=== PATIENT | male | born 1985 | race Caucasian/White ===

== ENCOUNTER 2020-12-24 22:31 | Emergency (ER) | payer OTHER ==
[~2020-12-24] VITALS: Ht 167.7 cm; Wt 74.8 kg
[~2020-12-24 22:31] MED LIST: ACHD5005 PO; CYCL10TA9 PO
[2020-12-24 23:32] LABS: BASOPHILS % (AUTO) 0 % (0-10); EOSINOPHILS % (AUTO) 0 % (0-10); HEMATOCRIT 43 % (40-54); HEMOGLOBIN 14.9 g/dL (13.3-17.7); LYMPHOCYTES # (AUTO) 1.1 10^3/uL (1.0-4.0); LYMPHOCYTES % (AUTO) 14 % (12-44); MEAN CORPUSCULAR HEMOGLOBIN 31 pg (25-34); MEAN CORPUSCULAR HGB CONC 35 g/dL (32-36); MEAN CORPUSCULAR VOLUME 89 fL (80-99); MEAN PLATELET VOLUME 10.4 fL (9.0-12.2); MONOCYTES # (AUTO) 0.5 10^3/uL (0.0-1.0); MONOCYTES % (AUTO) 7 % (0-12); NEUTROPHILS # (AUTO) 6.1 10^3/uL (1.8-7.8); NEUTROPHILS % (AUTO) 78 % (42-75); PLATELET COUNT 238 10^3/uL (130-400); WHITE BLOOD COUNT 7.9 10^3/uL (4.3-11.0)
[2020-12-24 23:43] LABS: INR 1.2 (0.8-1.4); PROTHROMBIN TIME PATIENT 15.5 SEC (12.2-14.7)
[2020-12-24 23:52] LABS: ALANINE AMINOTRANSFERASE 24 U/L (0-55); ALBUMIN 4.5 GM/DL (3.2-4.5); ALKALINE PHOSPHATASE 72 U/L (40-136); BILIRUBIN,TOTAL 0.7 MG/DL (0.1-1.0); BUN/CREATININE RATIO 14; CALCIUM 9.7 MG/DL (8.5-10.1); CARBON DIOXIDE 26 MMOL/L (21-32); CHLORIDE 100 MMOL/L (98-107); CREATINE KINASE 150 U/L (30-200); CREATININE SERUM 1.07 MG/DL (0.60-1.30); GFR ESTIMATED > 60; GLUCOSE 111 MG/DL (70-105); MAGNESIUM 1.9 MG/DL (1.6-2.4); POTASSIUM 3.8 MMOL/L (3.6-5.0); SODIUM 137 MMOL/L (135-145); TOTAL PROTEIN 7.3 GM/DL (6.4-8.2)
[2020-12-25] LABS: CREATINE KINASE MB 1.3 NG/ML (<6.6)
[2020-12-25 00:12] LABS: ACETAMINOPHEN < 10 UG/ML (10-30)
[2020-12-25] MEDS ORDERED: TETANUS,DIPTH,PERTUSS P/F (BOOSTRIX) 0.5 ML VIAL IM ONE (00:15)
[2020-12-25] MEDS ORDERED: LIDOCAINE/EPI 2% 1:100,00 (XYLOCAINE) 20 ML VIAL ONE (00:41)
[2020-12-25] MEDS ORDERED: LIDOCAINE/EPI 2% 1:100,00 (XYLOCAINE) 20 ML VIAL INJ ONE (01:00)
[2020-12-25 01:11] VITALS: BP_SYST 113; BP_SYST 117; BP_DIAS 64; BP_DIAS 70
[2020-12-25 01:16] LABS: BILIRUBIN,URINE NEGATIVE (NEGATIVE); CLARITY,URINE CLEAR; COLOR,URINE YELLOW; GLUCOSE, URINE (UA) NEGATIVE (NEGATIVE); KETONES,URINE NEGATIVE (NEGATIVE); LEUKOCYTE ESTERASE ,URINE NEGATIVE (NEGATIVE); NITRITE,URINE NEGATIVE (NEGATIVE); PROTEIN,URINE NEGATIVE (NEGATIVE)
[2020-12-25 01:26] LABS: BACTERIA,URINE NEGATIVE /HPF; RBC,URINE 25-50 /HPF; SQUAMOUS EPITHELIAL CELL,UR RARE /HPF
[2020-12-25 01:29] LABS: AMPHETAMINE SCREEN, URINE NEGATIVE (NEGATIVE); BARBITURATE SCREEN URINE NEGATIVE (NEGATIVE); BENZODIAZEPINES SCREEN URINE NEGATIVE (NEGATIVE); CANNABINOID SCREEN, URINE NEGATIVE (NEGATIVE); COCAINE SCREEN URINE NEGATIVE (NEGATIVE); METHADONE STAT NEGATIVE (NEGATIVE); METHAMPHETAMINE SCREEN URINE S NEGATIVE (NEGATIVE); OPIATE SCREEN URINE NEGATIVE (NEGATIVE); OXYCODONE STAT NEGATIVE (NEGATIVE); PROPOXYPHENE STAT NEGATIVE (NEGATIVE); TRICYCLIC ANTIDEPRESSANTS SCRE NEGATIVE (NEGATIVE)
[2020-12-25] MEDS ORDERED: RX-CEPHALEXIN (KEFLEX) 250 MG CAP PPK#4 PO STA (01:35)
[2020-12-25] MEDS ORDERED: RX-NAPROXEN (NAPROSYN) 250 MG TAB PPK#4 PO STA (01:35)
[2020-12-25] MEDS ORDERED: CEPH500T PO (01:41)
[2020-12-25] MEDS ORDERED: NAPR500T8 PO (01:41)
--- NOTE | 2020-12-25 01:41 | ED Syncope ---
General Chief Complaint: General Problems/Pain Stated Complaint: CHIN LACERATION/INJURY Nursing Triage Note: ARRIVES TO ROOM 7 C/O PASSING OUT AND HITTING HIS CHIN. THERE IS A 2.5 CM LAC NOTED TO HIS DISTAL CHIN AREA WHICH APPEARS TO BE THROUGH THE SKIN TISSUE. NO BLEEDING NOTED AT THIS TIME. ALERT AND ORIENTED X4 SO AT BEDSIDE. CALL LIGHT IN REACH History of Present Illness Location Injury Occurred: HOME Allergies and Home Medications Allergies Coded Allergies: No Known Drug Allergies (Unverified , 12/26/15) Home Medications Cyclobenzaprine HCl 10 Mg Tablet, 10 MG PO Q8H PRN for PAIN Prescribed by: VI SANDOVAL on 12/26/15 1524 Hydrocodone Bit/Acetaminophen 1 Each Tablet, 1 EACH PO Q4H PRN for PAIN Prescribed by: VI SANDOVAL on 12/26/15 1524 Past Behlrsw-Tbjxnx-Popzdl Hx Patient Social History Alcohol Use: Denies Use Drug of Choice: MUSHROOMS Recent Infectious Disease Expo: No Recent Hopitalizations: No Immunizations Up To Date Tetanus Booster (TDap): Less than 5yrs Past Medical History Surgeries: Yes (PRK EYE SURGERY) Respiratory: No Cardiac: No Neurological: No Genitourinary: No Gastrointestinal: No Musculoskeletal: Yes Chronic Back Pain Endocrine: No HEENT: No Cancer: No Psychosocial: No Integumentary: No Blood Disorders: No Family Medical History No Pertinent Family Hx Physical Exam Vital Signs Vital Signs - First Documented 12/24/20 23:25 Temp 35.9 Pulse 65 Resp 18 B/P (MAP) 129/75 (93) Pulse Ox 98 Capillary Refill : Less Than 3 Seconds Height, Weight, BMI Height: 5'6" Weight: 158lbs. oz. [id number]; 26.00 BMI Method:Stated Progress/Results/Core Measures Results/Orders Lab Results Laboratory Tests Test 12/24/20 23:25 12/24/20 23:51 12/25/20 01:10 Range/Units White Blood Count 7.9 4.3-11.0 10^3/uL Red Blood Count 4.79 4.30-5.52 10^6/uL Hemoglobin 14.9 13.3-17.7 g/dL Hematocrit 43 40-54 % Mean Corpuscular Volume 89 80-99 fL Mean Corpuscular Hemoglobin 31 25-34 pg Mean Corpuscular Hemoglobin Concent 35 32-36 g/dL Red Cell Distribution Width 11.9 10.0-14.5 % Platelet Count 238 130-400 10^3/uL Mean Platelet Volume 10.4 9.0-12.2 fL Immature Granulocyte % (Auto) 0 % Neutrophils (%) (Auto) 78 H 42-75 % Lymphocytes (%) (Auto) 14 12-44 % Monocytes (%) (Auto) 7 0-12 % Eosinophils (%) (Auto) 0 0-10 % Basophils (%) (Auto) 0 0-10 % Neutrophils # (Auto) 6.1 1.8-7.8 10^3/uL Lymphocytes # (Auto) 1.1 1.0-4.0 10^3/uL Monocytes # (Auto) 0.5 0.0-1.0 10^3/uL Eosinophils # (Auto) 0.0 0.0-0.3 10^3/uL Basophils # (Auto) 0.0 0.0-0.1 10^3/uL Immature Granulocyte # (Auto) 0.0 0.0-0.1 10^3/uL Prothrombin Time 15.5 H 12.2-14.7 SEC INR Comment 1.2 0.8-1.4 Activated Partial Thromboplast Time 24 24-35 SEC Sodium Level 137 135-145 MMOL/L Potassium Level 3.8 3.6-5.0 MMOL/L Chloride Level 100 98-107 MMOL/L Carbon Dioxide Level 26 21-32 MMOL/L Anion Gap 11 5-14 MMOL/L Blood Urea Nitrogen 15 7-18 MG/DL Creatinine 1.07 0.60-1.30 MG/DL Estimat Glomerular Filtration Rate > 60 BUN/Creatinine Ratio 14 Glucose Level 111 H 70-105 MG/DL Calcium Level 9.7 8.5-10.1 MG/DL Corrected Calcium 9.3 8.5-10.1 MG/DL Magnesium Level 1.9 1.6-2.4 MG/DL Total Bilirubin 0.7 0.1-1.0 MG/DL Aspartate Amino Transf (AST/SGOT) 28 5-34 U/L Alanine Aminotransferase (ALT/SGPT) 24 0-55 U/L Alkaline Phosphatase 72 40-136 U/L Total Creatine Kinase 150 30-200 U/L Creatine Kinase MB 1.3 <6.6 NG/ML Myoglobin 49.2 10.0-92.0 NG/ML Troponin I < 0.028 <0.028 NG/ML Total Protein 7.3 6.4-8.2 GM/DL Albumin 4.5 3.2-4.5 GM/DL Acetaminophen Level < 10 L 10-30 UG/ML Serum Alcohol < 10 <10 MG/DL Coronavirus 2019 (PORTER) Not Detected Not Detecte Urine Color YELLOW Urine Clarity CLEAR Urine pH 7.0 5-9 Urine Specific [place] 1.010 L 1.016-1.022 Urine Protein NEGATIVE NEGATIVE Urine Glucose (UA) NEGATIVE NEGATIVE Urine Ketones NEGATIVE NEGATIVE Urine Nitrite NEGATIVE NEGATIVE Urine Bilirubin NEGATIVE NEGATIVE Urine Urobilinogen 1.0 < = 1.0 MG/DL Urine Leukocyte Esterase NEGATIVE NEGATIVE Urine RBC (Auto) 3+ H NEGATIVE Urine RBC 25-50 H /HPF Urine WBC NONE /HPF Urine Squamous Epithelial Cells RARE /HPF Urine Crystals NONE /LPF Urine Bacteria NEGATIVE /HPF Urine Casts NONE /LPF Urine Mucus NEGATIVE /LPF Urine Culture Indicated NO Urine Opiates Screen NEGATIVE NEGATIVE Urine Oxycodone Screen NEGATIVE NEGATIVE Urine Methadone Screen NEGATIVE NEGATIVE Urine Propoxyphene Screen NEGATIVE NEGATIVE Urine Barbiturates Screen NEGATIVE NEGATIVE Ur Tricyclic Antidepressants Screen NEGATIVE NEGATIVE Urine Phencyclidine Screen NEGATIVE NEGATIVE Urine Amphetamines Screen NEGATIVE NEGATIVE Urine Methamphetamines Screen NEGATIVE NEGATIVE Urine Benzodiazepines Screen NEGATIVE NEGATIVE Urine Cocaine Screen NEGATIVE NEGATIVE Urine Cannabinoids Screen NEGATIVE NEGATIVE My Orders Orders - SAMPSON RODRIGUEZ DO Ed Iv/Invasive Line Start (12/24/20 23:22) Ekg Tracing (12/24/20 23:22) Monitor-Rhythm Ecg Trace Only (12/24/20 23:22) Orthostatic Vital Signs (Adult (12/24/20 23:22) Chest 1 View, Ap/Pa Only (12/24/20 23:22) Acetaminophen (12/24/20 23:22) Alcohol (12/24/20 23:22) Cbc With Automated Diff (12/24/20 23:22) Comprehensive Metabolic Panel (12/24/20 23:22) Creatine Kinase (12/24/20 23:22) Creatine Kinase Mb (12/24/20 23:22) Drug Screen Stat (Urine) (12/24/20 23:22) Magnesium (12/24/20 23:22) Protime With Inr (12/24/20 23:22) Partial Thromboplastin Time (12/24/20 23:22) Ua Culture If Indicated (12/24/20 23:22) Myoglobin Serum (12/24/20 23:22) Troponin I (12/24/20 23:22) Ct Head/Face/Cervical Wo (12/24/20 23:32) Cervical Collar (12/24/20 23:32) Covid 19 Inhouse Test (12/24/20 23:40) Dipht,Pertuss(Acell),Tet Adult (Boostrix (12/25/20 00:15) Lidocaine/Epi 2% 1:100,000 (Xylocaine/Ep (12/25/20 01:00) Lidocaine/Epi 2% 1:100,000 (Xylocaine/Ep (12/25/20 00:41) Rx-Cephalexin Capsule (Rx-Keflex Capsule (12/25/20 01:35) Rx-Naproxen (Rx-Naprosyn) (12/25/20 01:35) Medications Given in ED Current Medications Medications Dose Ordered Sig/Solo Route Start Time Stop Time Status Last Admin Dose Admin Diphtheria/ Tetanus/Acell Pertussis 0.5 ml ONCE ONCE IM 12/25/20 00:15 12/25/20 00:16 DC 12/25/20 01:18 0.5 ML Lidocaine/ Epinephrine 20 ml ONCE ONCE INJ 12/25/20 01:00 12/25/20 01:01 DC 12/25/20 01:16 20 ML Vital Signs/I&O 12/24/20 12/25/20 23:25 01:11 Temp 35.9 Pulse 65 49 44 77 Resp 18 B/P (MAP) 129/75 (93) 113/64 (80) 117/70 (86) 117/70 (86) Pulse Ox 98 Blood Pressure Mean: 86 Departure Impression Primary Impression: Syncope Additional Impressions: Chin laceration MANDIBLE CONTUSION CERVICAL SPINE STRAIN Shlmjkhktc-bcwaqcdlu-fmjvnrh (DPT) vaccination administered at current visit Disposition: HOME, SELF-CARE Condition: Stable Departure-Patient Inst. Referrals: [facility] [place] Patient Instructions: Cervical Muscle Strain (DC), Contusion (DC), Laceration Repair With Stitches (DC), Syncope (Fainting) (DC) Add. Discharge Instructions: ICE TO SORE AREAS AT 20 MINUTE INTERVALS TYLENOL NEEDED FOR PAIN CLEAN WOUND TWICE A DAY WITH ANTIBACTERIAL SOAP AND WATER, OTHERWISE KEEP CLEAN AND DRY SUTURES OUT IN 5-7 DAYS--YOU MAY RETURN HERE FOR SUTURE REMOVAL OR FOLLOW UP WITH [facility] FOR SUTURE REMOVAL FOLLOW UP WITH [facility] IN 2-3 DAYS FOR FURTHER CARE, RETURN TO ER IF SYMPTOMS RETURN All discharge instructions reviewed with patient and/or family. Voiced understanding. Scripts Naproxen (Naproxen) 500 Mg Tablet.dr 500 MG PO BID, #20 TAB Prov: SAMPSON RODRIGUEZ DO 12/25/20 Cephalexin (Cephalexin) 500 Mg Tablet 500 MG PO QID, #40 TAB Prov: SAMPSON RODRIGUEZ DO 12/25/20 SAMPSON RODRIGUEZ DO Dec 25, 2020 01:41
[2020-12-25] MEDS ORDERED: NAPROXEN 250 MG (NAPROSYN) TABLET PO ONE ×2 (01:44→02:00)
[2020-12-25 01:56] VITALS: BP 118/60
--- NOTE | 2020-12-25 07:27 | Diagnostic Imaging Report ---
PATIENT HISTORY: SYNCOPE. TECHNIQUE: Single frontal view of the chest. COMPARISON: None FINDINGS: The lung volumes are normal. No focal consolidation is seen. No large pleural effusion or pneumothorax is seen. The cardiomediastinal silhouette is normal in size and contour. No acute osseous abnormality is seen. IMPRESSION: No acute pulmonary abnormality seen. Dictated by: Dictated on workstation # [id number]
--- NOTE | 2020-12-25 07:37 | Diagnostic Imaging Report ---
PROCEDURE: CT head, face, and cervical spine without contrast. TECHNIQUE: Multiple contiguous axial images were obtained through the head, neck, and facial bones without the use of intravenous contrast. Sagittal and coronal reformations through the cervical spine and facial bones were also performed. Auto Exposure Controls were utilized during the CT exam to meet ALARA standards for radiation dose reduction. INDICATION: Trauma, fall COMPARISON: 12/26/2015 FINDINGS: No intracranial hemorrhage. No intracranial mass, mass effect, midline shift, herniation, hydrocephalus, or extra-axial fluid collection. No definite CT evidence of an acute ischemic infarction. The orbits are unremarkable. The paranasal sinuses are clear. The calvarium is intact. Very minimal mucosal thickening within the inferior aspect of the bilateral maxillary sinuses. Otherwise, the paranasal sinuses are clear. The lamina papyracea are intact. Leftward nasal septal deviation. 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 No temporomandibular joint dislocation. No acute facial fracture. Chronic deformities of the bilateral nasal bones, left greater than right, which are felt to relate to chronic fractures. Parapharyngeal fat is symmetric and well-maintained. Soft tissue wound and defect is noted overlying the anterior aspect of the chin to the left of midline without suspicious radiopaque foreign body. No focal fluid collection. Alignment of the cervical spine is well maintained. Alignment of the atlantooccipital joint is well maintained. Vertebral body heights and disc spaces are well-maintained. No acute fracture or dislocation. No destructive osseous process. No severe osseous central canal stenosis. No apical pneumothorax. IMPRESSION: No acute intracranial abnormality. No acute facial fracture. No acute osseous abnormality within the cervical spine. Soft tissue injury and laceration involving the anterior aspect of the chin to the left of midline. I do not do not totally agree with the preliminary interpretation. In particular, they had questioned the nasal bone fractures were possibly acute, though these appear to be chronic in nature. Report given to the [facility] and faxed at 7:35 AM 12/25/2020/cb Dictated by: Dictated on workstation # [id number]
== END 2020-12-25 01:56 | disposition home or self-care (01) ==
LOC: EDUNIT# 22:31 → ER 22:34
DX: S01.81XA Laceration without foreign body of other part of head, initial encounter (principal); S16.1XXA Strain of muscle, fascia and tendon at neck level, initial encounter; R55 Syncope and collapse; G89.29 Other chronic pain; M54.9 Dorsalgia, unspecified; Z23 Encounter for immunization; Z20.822 Contact with and (suspected) exposure to COVID-19; Z79.891 Long term (current) use of opiate analgesic; W22.8XXA Striking against or struck by other objects, initial encounter
CPT/HCPCS: 70450; 70486; 71045; 72125; 80053; 80306; 81000; 82550; 82553; 83735; 83874; 84484; 85025; 85610; 85730; 93005; 93041; 99284; G0480 ×2; U0002; 36415; 80320; 80329; 87635; 90715